=== PATIENT | female | born 1970 | race Caucasian/White ===

== ENCOUNTER → 2024-01-14 12:16 | Outpatient (REF) | payer OTHER, SELFPAY | LOC: HWRAD 12:16 | PROVIDERS: ATTENDING PHYSICIAN Physician Assistant Medical | DX: M54.12 Radiculopathy, cervical region (principal) | CPT/HCPCS: 72052 ==

== ENCOUNTER → 2024-09-14 06:54 | Outpatient (REF) | payer OTHER, SELFPAY | LOC: HWWDC 06:54 | PROVIDERS: ATTENDING PHYSICIAN Obstetrics & Gynecology Gynecology; FAMILY PHYSICIAN Physician Assistant Medical | DX: Z12.31 Encounter for screening mammogram for malignant neoplasm of breast (principal) | CPT/HCPCS: 77063; 77067 ==